=== PATIENT | female | born 2000 | race Caucasian/White ===

== ENCOUNTER → 2024-07-14 09:05 | Outpatient (REF) | payer MEDICAID, SELFPAY ==
--- NOTE | 2024-07-14 09:09 | CA_ITS ---
Transthoracic Echocardiogram Patient (Last, First, Middle): Courtney Barbosa L Gender: Female Date of : 2000 Age: 24 Procedure Date: 07/14/2024 Procedure Type: Transthoracic Echocardiogram Location: OP Height: 160.02 cm Weight: 56.7 kg BSA: 1.58 m2 Heart Rate: bpm BP: 127 / 85 mmHg Warehouse Record Clerk: ANGELITO/KELLY Referring MD: Delon Anderson MD Symptoms: BIATRIAL ENLARGEMENT I51.7 Study Quality: Adequate ECG Rhythm: Sinus Conclusions: - The left ventricular systolic function is normal. The calculated ejection fraction is 57% by biplane method. - Mild biatrial enlargement. - There is moderate tricuspid valve regurgitation. Findings Left Ventricle Normal left ventricular cavity size. There is normal left ventricular wall thickness. The left ventricular systolic function is normal. The calculated ejection fraction is 57% by biplane method. There is no evidence of regional wall motion abnormalities. Diastolic function is normal for age. LV peak GLS -19.9% (normal). Right Ventricle Mildly increased right ventricular cavity size. There is normal right ventricular systolic function. Atria Mild biatrial enlargement. Aortic Valve There is a normal trileaflet aortic valve. There is no aortic valve stenosis. There is no aortic valve regurgitation. Mitral Valve The mitral valve appears normal. There is trace mitral valve regurgitation. There is no mitral valve stenosis. Pulmonic Valve The pulmonic valve is likely normal. Tricuspid Valve There is mild anterior tricuspid leaflet thickening. There is moderate tricuspid valve regurgitation. Borderline RVSP. Great Vessels The asc aorta is normal in size. Venous The inferior vena cava is normal in size and collapses greater than 50% with inspiration. Pericardium/Pleural There is no evidence of pericardial effusion. Prior Study Comparison No prior study available for comparison. Measurements 2D Linear Measurements IVSd: 0.61 0.6-0.9/0.6-1.0 cm LVIDd: 4.80 3.9-5.3/4.2-5.9 cm LVIDd Index: 3.04 2.4-3.2/2.2-3.1 cm/m2 LVIDs: 3.35 2.0-3.6 cm LVPWd: 0.83 0.7-1.1 cm LA Diam: 2.80 2.7-3.8/3.0-4.0 cm LAIDs Index: 1.77 1.5-2.3 cm/m2 LV Mass: 138.28 67-162/88-224 g LV Mass Index: 87.52 43-95/49-115 g/m2 LVOT Diam: 2.00 3.0+(-)1.3 cm 2D Systolic Function EF 4C: 53.10 >55% EF 2C: 59.80 >55% EF BiP: 57.40 >55% Mitral Valve MV Pk E: 0.89 MV PK A: 0.59 MV Decel Time: 218.00 E/A: 1.50 E'Lateral: 11.70 E'Medial: 8.05 E/E' Med: 11.00 E/E' Lat: 7.60 PHT: 64.00 MVA PHT: 3.44 Decel Brooks: 4.06 Aortic Valve AoV Pk Franky: 1.35 AoV Mn Franky: 1.00 AoV VTI: 0.33 AoV Pk Grad: 7.00 Aov Mn Grad: 4.00 ANA MARÍA Cont.VTI: 1.87 LVOT LVOT Pk Franky: 0.99 LVOT Mn Franky: 0.75 LVOT VTI: 0.19 LVOT Pk Grad: 4.00 LVOT Mn Grad: 2.00 LVOT Diam: 2.00 LVOT Area: 3.14 Diastolic Function MV Pk E: 0.89 MV Pk A: 0.59 E/A: 1.50 E'Medial: 8.05 E/E' Med: 11.00 E' Laterial: 11.70 E/E' Lat: 7.60 Right Ventricle TAPSE (mm): 23.00 TVS' Franky: 10.70 Tricuspid Valve TR Pk Franky: 2.88 TR Pk Grad: 33.00 RA Press: 3.00 RVSP: 36.00 Great Vessels Aorta Sinus of Valsalva: 2.50 2.0-3.5 cm Ao Asc: 2.50 2.1-3.4 cm Updated in Other Vendor System with Status of Final Jareth Daly MD electronically signed on 07/14/2024 1:14:21 PM with status of Final
--- OUTSIDE RECORDS SUMMARY | 2024-07-14 09:46 | XMS_ITS | Clinical Summary ---
Author Organization [employer] Address [address] [facility] 7[address] [place] [address] Care Team Providers Care Imcu Specialist Name Role Phone Delon Rose MD Primary Care Prov ider Medications * This document contains information received from the source organization and may not represent a complete record from that organization. No known medications Active Problems Problem Noted Date Diagnosed Date Chronic back pain 07/13/2024 Assessment & Plan (07/13/2024 1:29 PM EDT): Low thoracic/upper lumbar, no radiation, pain stays localized, will order thoracic/lumbar xray and will refer to PT, call back if not improving by the end of PT sessions, continue home remedies (Nsaid/Tylenol/ice/rest) Encounter for medical examination to establish c are 06/26/2024 Assessment & Plan (06/26/2024 10:59 AM EDT): Last pcp visit over 6 yrs ER: - Hospitalization: mental health related rehab Pmhx: anxiety/depression Pshx: tonsillectomy 2016 All: - Meds: methadone, A1 Menarche: 11yrs LMP: 06/22/24 Sexually active with 1 male partner not using contraceptive and not interested Biatrial enlargement 06/26/2024 Assessment & Plan (06/26/2024 11:19 AM EDT): Patient had EKG found with biatrial enlargement, currently asymptomatic, will refer to cardiology Encounters * This document contains information received from the source organization and may not represent a complete record from that organization. Date Type Department Care Team Description 07/13/2024 11:30 AM EDT Office Visit [facility] CHC MED & PEDS [address] [place] [phone] Delon Rose MD Other chronic back pain (Primary Dx) 07/13/2024 Telephone [facility] MEDICINE [address] [place], [place] [phone] Vero Gomez MD 07/13/2024 Travel 07/09/2024 Population Health Risk Score Community [facility] (C3) Department [address] [place] [phone] Provider, Population Health Generic 06/29/2024 Telephone [facility] MEDICINE [address] [place] [address] Gena Mercado RN 06/26/2024 10:45 AM EDT Telemedicine [facility] CH[facility] MED & PEDS [address] [place], [place] [phone] Delon Rose MD Encounter for medical examination to establish care (Primary Dx); Biatrial enlargement; Neck pain; Anxiety and depression 06/26/2024 Travel from Last 3 Months Family History Medical History Relation Name Comments No Known Problems Father No Known Problems Mother Cancer Neg Hx Relation Name Status Comments Father Mother Social History Tobacco Use Types Packs/Day Years Used Date Smoking Tobacco: Former Cigarettes Q uit: 2016 Smokeless Tobacco: Former Tobacco Cessation:Counseling Given: Not Answered Alcohol Use Standard Drinks/Week Comments Yes 0 (1 standard drink = 0.6 oz pur e alcohol) socially Depression Answer Date Recorded Patient Health Questionnaire-9 Score 6 06/26/2024 Patient Health Questionnaire-9 Score 6 06/26/2024 Last PHQ-9: Questionnaire Data Not on file 0 06/26/2024 Depression Answer Date Recorded Patient Health Questionnaire-2 Score 2 06/26/2024 Comments Unknown Sex and Gender Information Value Date Recorded Sex Assigned at Female 06/17/2024 9:05 AM EDT Legal Sex Female 8:56 AM EDT Gender Identity Female 06/17/2024 9:05 AM EDT Sexual Orientation Straight 06/17/2024 9: 05 AM EDT Last Filed Vital Signs Vital Sign Reading Time Taken Comments Blood Pressure 126/76 07/13/2024 11:40 AM EDT Pulse 62 07/13/2024 11:40 AM EDT Temperature 36.8 ??C (98.3 ??F) 07/13/2024 11:40 AM E DT Respiratory Rate 18 07/13/2024 11:40 AM EDT Oxygen Saturation 96% 07/13/2024 11:40 AM EDT Inhaled Oxygen Concentration - - Weight 56.7 kg (125 lb) 07/13/2024 11:40 AM EDT Height 160 cm (5' 3 ) 07/13/2024 11:40 AM EDT Body Mass Index 22.14 07/13/2024 11:40 AM EDT Plan of Treatment Upcoming Encounters Date Type Department Care Team ([facility] st Contact Info) Description 09/28/2024 1:30 PM EDT Office Visit [facility] CHC MED & PEDS [address] [place] [address] Delon Rose MD [address] [place] [address] Health Maintenance Due Date Last Done Comments HIV Screening 2000 SDOH Screening 2000 Disability Screening 1998 Alcohol/Substance Use Screening 2010 Family Planning (PISQ) 2013 HPV Vaccines (1 - 3-dose series) 2013 Hepatitis C Screening 2016 DTaP/Tdap/Td Vaccines (1 - Tdap) 2017 Hepatitis B Vaccines (1 of 3 - 19+ 3-dose series) 2017 Pap Smear 07/13/2019 COVID-19 Vaccine (1 - 2023-2 5 season) 2023 Influenza Vaccine (#1) 2023 Depression Screening 06/26/2025 06/26/2024, 06/26/2024 Tobacco Screening 06/26/2025 06/26/2024 Zoster Vaccines (1 of 2) 2048 RSV Patients and Patients Aged 60 years or older (1 - 1-dose 75+ series) 2073 HIB Vaccines Aged Out No longer eligi ble based on patient's age to complete this topic Hepatitis A Vaccines Aged Out No long er eligible based on patient's age to complete this topic IPV Vaccines Aged Out No longer eligi ble based on patient's age to complete this topic Meningococcal B Vaccine Aged Out No l onger eligible based on patient's age to complete this topic Meningococcal Vaccine Aged Out No alden jozef eligible based on patient's age to complete this topic Pneumococcal Vaccine: Pediatrics (0 to 5 Years) and At-Risk Patients (6 to 49) Years) Aged Out No longer eligible b ased on patient's age to complete this topic RSV under 20 months Aged Out No longe r eligible based on patient's age to complete this topic Rotavirus Vaccines Aged Out No longer eligible based on patient's age to complete this topic [email or web address] Care Teams Imcu Specialist Relationship Specialty Start Date End Date Delon Rose MD [address] [place] [phone] PCP - General Internal Medicine 06/29/24
--- OUTSIDE RECORDS SUMMARY | 2024-07-14 09:46 | XMS_ITS | Encounter Summary ---
Author Organization [employer] [facility] Address [address] [place] [address] Care Team Providers Care Front Man Name Role Phone Delon Rose MD Primary Care Prov ider Encounter Details Date Type Department Care Team (Late st Contact Info) Description 07/09/2024 Population Health Risk Score [facility] (C3) Department [address] [place] [phone] Provider, Population Health Generic Social History Tobacco Use Types Packs/Day Years Used Date Smoking Tobacco: Former Cigarettes Q uit: 2016 Smokeless Tobacco: Former Alcohol Use Standard Drinks/Week Comments Yes 0 [...] Orientation Straight 06/17/2024 9: 05 AM EDT documented as of this encounter Plan of Treatment Upcoming Encounters Date Type Department Care Team (Late st Contact Info) Description 09/28/2024 1:30 PM EDT Office Visit [facility] CHC MED & PEDS [address] [place] [address] Delon Rose MD [address] [place] [address] documented as of this encounter Visit Diagnoses Not on filedocumented in this encounter Additional Health Concerns Assessment Noted Time PHQ-9 Depression Total Score: 6 06/27/19 10:24 AM EDT documented as of this encounter Care Teams Front Man Relationship Specialty Start Date End Date Delon Rose MD [address] [place] [phone] PCP - General Internal Medicine 06/29/24 documented as of this encounter
--- OUTSIDE RECORDS SUMMARY | 2024-07-14 09:46 | XMS_ITS | Encounter Summary ---
Author Organization [employer] Address [address] [facility] 7 [place] [address] Care Team Providers Care Application Support Lead Name Role Phone Delon Rose MD Primary Care Prov ider Encounter Details Date Type Department Care Team (Latest Contact Info) Description 07/13/2024 Travel Social History Tobacco Use Types Packs/Day Years [...] Description 09/28/2024 1:30 PM EDT Office Visit [facility] CHC MED & PEDS [address] [place] [address] Delon Rose MD [address] [place] [address] documented as of this encounter Visit Diagnoses Not on filedocumented in this encounter Additional Health Concerns Assessment Noted Time PHQ-9 Depression Total Score: 6 06/27/19 25 10:24 AM EDT documented as of this encounter Care Teams Application Support Lead Relationship Specialty Start Date End Date DelgadoDelon Andrea MD [address] [place] [id number] PCP - General Internal Medicine 06/29/24 documented as of this encounter
--- OUTSIDE RECORDS SUMMARY | 2024-07-14 09:46 | XMS_ITS | Encounter Summary ---
Author Organization [employer] Address [address] [facility] [address], [place] [address] Care Team Providers Care Chucking Machine Set Up Operator Tool Name Role Phone Delon Rose MD Primary Care Prov ider Reason for Referral * Consultation (Routine) - Closed Specialty Diagnoses / Procedures Referred By Conttatiana t Referred To Contact Physical Therapy Diagnoses Other chronic back pain Delon Rose MD [address] [place] [address] Phone: tel: fax: [place] [address] Phone: tel: fax: Referral ID Status Reason Start Date Expiration Date V isits Requested Visits Authorized [id number] Closed Specialty Services Required 07/13/2024 07/13/2025 1 1 Encounter Details Date Type Department Care Team ([facility] st Contact Info) Description 07/13/2024 11:30 AM EDT Office Visit [facility] CHC MED & PEDS [address] [place] [address] Delon Rose MD [address] [place] [address] Other chronic back pain (Primary Dx) Social History Tobacco Use Types Packs/Day Years [...] AM EDT documented as of this encounter Last Filed Vital Signs Vital Sign Reading [...] Mass Index 22.14 07/13/2024 11:40 AM EDT documented in this encounter Progress Notes * Delon Anderson MD - 07/13/2024 11:30 AM EDT Subjective Patient ID: Courtney Barbosa is a 24 y.o. female who presents for No chief complaint on file.. Back Pain This is a chronic problem. The pain is present in the lumbar spine and thoracic spine. The quality of the pain is described as aching and stabbing. The symptoms are aggravated by bending and position. Pertinent negatives include no bladder incontinence, bowel incontinence, numbness, paresis, paresthesias, tingling or weakness. Review of Systems Gastrointestinal: Negative for bowel incontinence. Genitourinary: Negative for bladder incontinence. Musculoskeletal: Positive for back pain. Neurological: Negative for tingling, weakness, numbness and paresthesias. Objective Physical Exam Constitutional: Appearance: Normal appearance. Cardiovascular: Rate and Rhythm: Normal rate. Heart sounds: No murmur heard. Pulmonary: Effort: Pulmonary effort is normal. No respiratory distress. Breath sounds: No stridor. No wheezing or rhonchi. Musculoskeletal: General: No swelling, deformity or signs of injury. Right lower leg: No edema. Left lower leg: No edema. Neurological: General: No focal deficit present. Mental Status: She is alert and oriented to person, place, and time. Psychiatric: Mood and Affect: Mood normal. Behavior: Behavior normal. Assessment/Plan Problem List Items Addressed This Visit Chronic back pain - Primary Low thoracic/upper lumbar, no radiation, pain stays localized, will order thoracic/lumbar xray and will refer to PT, call back if not improving by the end of PT sessions, continue home remedies (Nsaid/Tylenol/ice/rest) Relevant Orders XR Thoracic Spine 3 Views XR Lumbar Spine 2-3 Views Referral to Physical Therapy documented in this encounter Miscellaneous Notes * Assessment & Plan Note - Delon Anderson MD - 07/13/2024 1:29 PM EDTAssociated Problem(s): Chronic back pain Low thoracic/upper lumbar, no radiation, pain stays localized, will order thoracic/lumbar xray and will refer to PT, call back if not improving by the end of PT sessions, continue home remedies (Nsaid/Tylenol/ice/rest) documented in this encounter Plan of Treatment Upcoming Encounters Date Type Department Care Team (Late st Contact Info) Description 09/28/2024 1:30 PM EDT Office Visit [facility] CHC MED & PEDS [address] [place] [address] Delon Rose MD [address] [place] [address] Scheduled Orders Name Type Priority Associated Diagnoses Orde r Schedule XR Thoracic Spine 3 Views Imaging Routine Other chronic back pain Expected: 07/13/2024, Expires: 07/13/2025 XR Lumbar Spine 2-3 Views Imaging Routine Other chronic back pain Expected: 07/13/2024, Expires: 07/13/2025 Scheduled Referrals Name Type Priority Associated Diagnoses Orde r Schedule Referral to Physical Therapy Outpatient Referral Routine Other chronic back pain Expected: 07/13/2024 (Approximate), Expires: 07/13/2025 documented as of this encounter Visit Diagnoses Diagnosis Other chronic back pain- Primary documented in this encounter Additional Health Concerns Assessment Noted Time PHQ-9 Depression Total Score: 6 06/27/19 10:24 AM EDT documented as of this encounter Care Teams Chucking Machine Set Up Operator Tool Relationship Specialty Start Date End Date Delon Rose MD [address] [place] [phone] PCP - General Internal Medicine 06/29/24 documented as of this encounter
--- OUTSIDE RECORDS SUMMARY | 2024-07-14 09:46 | XMS_ITS | Encounter Summary ---
Author Organization [employer] Address [address] [facility] 7[address] [place] [address] Care Team Providers Care Special Events Planner Name Role Phone Delon Rose MD Primary Care Prov ider Encounter Details Date Type Department Care Team (Late st Contact Info) Description 07/13/2024 Telephone [facility] MEDICINE [address] [place], [place] [phone] Vero Gomez MD [address] [place], [place] [phone] Social History Tobacco Use Types Packs/Day Years [...] AM EDT documented as of this encounter Miscellaneous Notes * Telephone Encounter - Vero Gomez MD - 07/13/2024 6:02 PM EDT Received a call from [facility] Radiology that patient's X-ray showed anterior wedge compression fracture of T12. Reviewed PCP's note, and patient has chronic back pain and there are no red flags. Willinform PCP and their team nurse to contact patient for further evaluation and treatment plan. documented in this encounter Plan of Treatment Upcoming Encounters Date Type Department Care Team ([facility] st Contact Info) Description 09/28/2024 1:30 PM EDT Office Visit [facility] MED & PEDS [address] [place] [address] Delon Rose MD [address] [place] [address] documented as of this encounter Visit Diagnoses Not on filedocumented in this encounter Additional Health Concerns Assessment Noted Time PHQ-9 Depression Total Score: 6 06/27/19 10:24 AM EDT documented as of this encounter Care Teams Special Events Planner Relationship Specialty Start Date End Date Delon Rose MD [address] [place] [address] PCP - General Internal Medicine 06/29/24 documented as of this encounter
== END ==
LOC: HO.CARD 09:05
PROVIDERS: PCP Internal Medicine; Visit Provider Internal Medicine
DX: I51.7 Cardiomegaly (principal)
CPT/HCPCS: 93306

== ENCOUNTER → 2024-07-14 09:09 | Outpatient (BNV) | payer MEDICAID, SELFPAY | PROVIDERS: PCP Internal Medicine; Visit Provider Internal Medicine | DX: I51.7 Cardiomegaly (principal); I36.1 Nonrheumatic tricuspid (valve) insufficiency | CPT/HCPCS: 93306; 93356 ==